=== PATIENT | female | born 1950 | race Caucasian/White ===

== ENCOUNTER 2018-06-13 02:17 | Inpatient (IN) | payer MEDICARE ==
[2018-06-13] MEDS ORDERED: ONDANSETRON 4 MG/2 ML VIAL IVP STA (02:48)
[2018-06-13] MEDS ORDERED: ceFAZolin 1,000 MG in DEXTROSE/WATER 1 50ML.BAG IVPB STA (03:07)
[2018-06-13] MEDS ORDERED: MORPHINE SULFATE 4 MG/ML SYRINGE IV STA ×2 (03:07→03:22)
[2018-06-13] MEDS ORDERED: SODIUM CHLORIDE 0.9% 1,000 ML IV ONE ×3 (03:09→07:23)
--- NOTE | 2018-06-13 03:09 | ED ---
Fall HPI - General Chief Complaint: Fall Stated Complaint: Ankle injury Time Seen by Provider: 06/13/18 02:21 Source: EMS Mode of arrival: EMS - History of Present Illness Initial Comments: This patient is 68-year-old woman brought to be evaluated for ankle injury. The patient's had been at home tonight and then had gotten up to go to the bathroom. She states that she had been having a number of bowel movements. She states that when she got she is bathroom she felt lightheaded and passed out , falling to the ground. She did not have any injury but when she got up again she did pass out. The patient on the ladder fall noted that she had an injury to her left ankle. The patient denies other injuries in the fall, including no head or neck injury, no chest, back or abdominal injury. She is denying any pain to the other extremities. 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 Fall Witnessed: yes, by family Place Fall Occurred: home Loss of Consciousness: second(s) Prolonged Down Time?: no Symptoms Prior to Fall: lightheadedness Location - Extremities: Left: Ankle Severity: severe Quality: sharp - Related Data Home Medications Medication Instructions Recorded Confirmed Atenolol 25 mg PO HS 06/13/18 06/13/18 Atorvastatin [Lipitor] 20 mg PO HS 06/13/18 06/13/18 Butalb/APAP/Caff 50-325-40Mg 1 tab PO Q4H PRN 06/13/18 06/13/18 [Fioricet 50-325-40] Celecoxib [CeleBREX] 200 mg PO BID 06/13/18 06/13/18 Cyclobenzaprine [Flexeril] 10 mg PO TID PRN 06/13/18 06/13/18 Dicyclomine [Bentyl] 10 mg PO QID 06/13/18 06/13/18 Ferrous Sulfate [Feosol] 325 mg PO Q48H 06/13/18 06/13/18 Fluticasone Nasal [place] [Flonase 1 spray EA NOSTRIL DAILY 06/13/18 06/13/18 Nasal [place]] Folic Acid 0.8 mg PO DAILY 06/13/18 06/13/18 Hydrochlorothiazide 25 mg PO DAILY 06/13/18 06/13/18 L.acidoph,Paracasei, B.lactis 1 tab PO DAILY 06/13/18 06/13/18 [Probiotic] LORazepam [Ativan] 1 mg PO TID PRN 06/13/18 06/13/18 Levothyroxine Sodium [Synthroid] 112 mcg PO SUTUWEFRSA 06/13/18 06/13/18 Levothyroxine Sodium [Synthroid] 224 mcg PO MOTH 06/13/18 06/13/18 Lisinopril [Zestril] 10 mg PO DAILY 06/13/18 06/13/18 Methotrexate Sodium [Methotrexate] 25 mg PO MO 06/13/18 06/13/18 Multivit-Min/Iron/Folic/Lutein 1 tab PO Q48H 06/13/18 06/13/18 [Centrum Silver Women Tablet] Pregabalin [Lyrica] 100 mg PO HS 06/13/18 06/13/18 Sennosides/Docusate Sodium 1 tab PO DAILY PRN 06/13/18 06/13/18 [Senna-S Laxative Tablet] Sertraline [Zoloft] 100 mg PO DAILY 06/13/18 06/13/18 buPROPion XL [Wellbutrin Xl] 150 mg PO BID 06/13/18 06/13/18 metroNIDAZOLE 1% GEL [Metrogel 1%] 1 applic TOPICAL DAILY 06/13/18 06/13/18 traZODone HCL 150 mg PO HS 06/13/18 06/13/18 Allergies Allergy/AdvReac Type Severity Reaction Status Date / Time No Known Allergies Allergy Verified 06/13/18 07:37 Review of Systems ROS Statement: Those systems with pertinent positive or pertinent negative responses have been documented in the HPI. ROS Other: All systems not noted in ROS Statement are negative. Constitutional: Denies: fever, chills Eyes: Denies: vision change ENT: Denies: epistaxis Respiratory: Denies: cough, dyspnea Cardiovascular: Reports: syncope. Denies: chest pain, palpitations, orthopnea, edema Gastrointestinal: Denies: abdominal pain, nausea, vomiting Genitourinary: Denies: dysuria, hematuria Musculoskeletal: Reports: arthralgia. Denies: back pain Skin: Denies: rash Neurological: Denies: headache, weakness, numbness Hematological/Lymphatic: Denies: easy bleeding Past Medical History Past Medical History: Hyperlipidemia, Rheumatoid Arthritis (RA) Additional Past Medical History / Comment(s): hypotension, fibramyalgia, hypothyroid, History of Any Multi-Drug Resistant Organisms: None Reported Past Surgical History: Orthopedic Surgery Additional Past Surgical History / Comment(s): right knee meniscus repair, Past Psychological History: Depression Smoking Status: Former smoker Past Alcohol Use History: Occasional Past Drug Use History: Marijuana - Past Family History Father Family Medical History: Cancer Additional Family Medical History / Comment(s): Father had bladder and bowel cancer. Mother Family Medical History: Rheumatoid Arthritis (RA) Additional Family Medical History / Comment(s): Mother from rheumatoid arthritis at the age of 61 yrs. General Exam Limitations: physical limitation General appearance: alert, in no apparent distress Head exam: Present: atraumatic, normocephalic Eye exam: Present: normal appearance, PERRL, EOMI. Absent: scleral icterus, conjunctival injection, nystagmus ENT exam: Present: mucous membranes dry Neck exam: Present: normal inspection, full ROM. Absent: tenderness Respiratory exam: Present: normal lung sounds bilaterally. Absent: respiratory distress, wheezes, rales, rhonchi, stridor Cardiovascular Exam: Present: regular rate, normal rhythm, normal heart sounds. Absent: systolic murmur, diastolic murmur, rubs, gallop GI/Abdominal exam: Present: soft. Absent: distended, tenderness, guarding, rebound, rigid, mass, pulsatile mass Extremities exam: Present: normal capillary refill. Absent: calf tenderness Left Hip exam: Present: normal inspection, full ROM. Absent: tenderness, swelling Upper Leg exam: Present: normal inspection, full ROM. Absent: tenderness, swelling Knee exam: Present: normal inspection, full ROM Back exam: Present: normal inspection. Absent: CVA tenderness (R), CVA tenderness (L), vertebral tenderness Neurological exam: Present: alert, oriented X3. Absent: motor sensory deficit Skin exam: Present: warm, dry, intact, normal color. Absent: rash Course Vital Signs 06/13/18 06/13/18 06/13/18 02:18 02:23 02:30 Temperature 98.3 F Pulse Rate 60 63 Respiratory 18 17 Rate Blood Pressure 99/58 91/58 91/58 O2 Sat by Pulse 98 97 100 Oximetry 06/13/18 06/13/1806/13/18 02:34 02:38 02:43 Temperature Pulse Rate 63 78 76 Respiratory 18 18 18 Rate Blood Pressure 110/72 112/90 130/115 O2 Sat by Pulse 100 96 99 Oximetry 06/13/18 06/13/18 06/13/18 03:00 03:30 04:00 Temperature Pulse Rate 60 64 65 Respiratory 16 15 17 Rate Blood Pressure 125/87 119/77 106/62 O2 Sat by Pulse 97 Oximetry 06/13/18 06/13/18 06/13/18 04:30 05:00 05:30 Temperature Pulse Rate 64 64 70 Respiratory 18 16 15 Rate Blood Pressure 74/56 108/72 85/58 O2 Sat by Pulse 99 97 97 Oximetry 06/13/18 06/13/18 06/13/18 06:00 06:30 07:00 Temperature Pulse Rate 74 74 64 Respiratory 16 17 18 Rate Blood Pressure 75/56 94/59 69/42 O2 Sat by Pulse 97 99 97 Oximetry 06/13/18 07:30 Temperature Pulse Rate 77 Respiratory 13 Rate Blood Pressure 84/58 O2 Sat by Pulse 96 Oximetry Medical Decision Making - Medical Decision Making This patient is 68-year-old woman presenting to the emergency department by ambulance for an ankle injury following syncopal episode. The patient has what appears to be open tib-fib fracture with displacement of the foot. Shortly after arrival, I did discuss risks and benefits, and patient agrees to have conscious sedation and closed reduction. Please see the procedure notes. Patient tolerated reduction well. I did discuss the case with Dr. Saleh who is covering trauma surgery. When the studies were back, case discussed with Dr. Gamez of orthopedic surgery who will admit. She has had irrigation and has had antibiotics and tetanus update. - Lab Data Result diagrams: 06/13/18 02:50 06/13/18 02:50 Lab Results 06/13/18 06/13/18 06/13/18 Range/Units 02:50 02:50 02:50 WBC 13.2 H (3.8-10.6) k/uL RBC 4.09 (3.80-5.40) m/uL Hgb 12.5 (11.4-16.0) gm/dL Hct 39.2 (34.0-46.0) % MCV 95.8 (80.0-100.0) fL MCH 30.5 (25.0-35.0) pg MCHC 31.8 (31.0-37.0) g/dL RDW 14.4 (11.5-15.5) % Plt Count 236 (150-450) k/uL Neutrophils % 86 % Lymphocytes % 8 % Monocytes % 4 % Eosinophils % 1 % Basophils % 0 % Neutrophils # 11.3 H (1.3-7.7) k/uL Lymphocytes # 1.1 (1.0-4.8) k/uL Monocytes # 0.5 (0-1.0) k/uL Eosinophils # 0.2 (0-0.7) k/uL Basophils # 0.0 (0-0.2) k/uL PT (9.0-12.0) sec INR (<1.2) APTT (22.0-30.0) sec Sodium 141 (137-145) mmol/L Potassium 4.4 (3.5-5.1) mmol/L Chloride 108 H (98-107) mmol/L Carbon Dioxide 26 (22-30) mmol/L Anion Gap 7 mmol/L BUN 18 H (7-17) mg/dL Creatinine 0.95 (0.52-1.04) mg/dL Est GFR (CKD-EPI)AfAm 72 (>60 ml/min/1.73 sqM) Est GFR (CKD-EPI)NonAf 62 (>60 ml/min/1.73 sqM) Glucose 120 H (74-99) mg/dL Plasma Lactic Acid Cam (0.7-2.0) mmol/L Calcium 9.1 (8.4-10.2) mg/dL Total Bilirubin 0.4 (0.2-1.3) mg/dL AST 22 (14-36) U/L ALT 27 (9-52) U/L Alkaline Phosphatase 46 (38-126) U/L Total Creatine Kinase 37 (30-135) U/L CK-MB (CK-2) 0.2 (0.0-2.4) ng/mL CK-MB (CK-2) Rel Index 0.5 Troponin I <0.012 (0.000-0.034) ng/mL Total Protein 6.4 (6.3-8.2) g/dL Albumin 3.9 (3.5-5.0) g/dL Amylase 40 (30-110) U/L Lipase 123 (23-300) U/L Serum Alcohol <10 mg/dL Blood Type Blood Type Confirm Blood Type Recheck Antibody Screen Antibody Identification Antigen Identification Direct Antiglob Test Spec Expiration Date 06/13/18 06/13/18 06/13/18 Range/Units 02:50 02:50 02:50 WBC (3.8-10.6) k/uL RBC (3.80-5.40) m/uL Hgb (11.4-16.0) gm/dL Hct (34.0-46.0) % MCV (80.0-100.0) fL MCH (25.0-35.0) pg MCHC (31.0-37.0) g/dL RDW (11.5-15.5) % Plt Count (150-450) k/uL Neutrophils % % Lymphocytes % % Monocytes % % Eosinophils % % Basophils % % Neutrophils # (1.3-7.7) k/uL Lymphocytes # (1.0-4.8) k/uL Monocytes # (0-1.0) k/uL Eosinophils # (0-0.7) k/uL Basophils # (0-0.2) k/uL PT 10.3 (9.0-12.0) sec INR 1.1 (<1.2) APTT 21.3 L (22.0-30.0) sec Sodium (137-145) mmol/L Potassium (3.5-5.1) mmol/L Chloride (98-107) mmol/L Carbon Dioxide (22-30) mmol/L Anion Gap mmol/L BUN (7-17) mg/dL Creatinine (0.52-1.04) mg/dL Est GFR (CKD-EPI)AfAm (>60 ml/min/1.73 sqM) Est GFR (CKD-EPI)NonAf (>60 ml/min/1.73 sqM) Glucose (74-99) mg/dL Plasma Lactic Acid Cam 1.5 (0.7-2.0) mmol/L Calcium (8.4-10.2) mg/dL Total Bilirubin (0.2-1.3) mg/dL AST (14-36) U/L ALT (9-52) U/L Alkaline Phosphatase (38-126) U/L Total Creatine Kinase (30-135) U/L CK-MB (CK-2) (0.0-2.4) ng/mL CK-MB (CK-2) Rel Index Troponin I (0.000-0.034) ng/mL Total Protein (6.3-8.2) g/dL Albumin (3.5-5.0) g/dL Amylase (30-110) U/L Lipase (23-300) U/L Serum Alcohol mg/dL Blood Type A Negative Blood Type Confirm Blood Type Recheck CABO Indicated Antibody Screen POSITIVE Antibody Identification Anti-Fya Antigen Identification Fya Antigen - NEGATIVE Direct Antiglob Test Negative Spec Expiration Date 06/16/2018 - 234906/13/18 Range/Units 04:34 WBC (3.8-10.6) k/uL RBC (3.80-5.40) m/uL Hgb (11.4-16.0) gm/dL Hct (34.0-46.0) % MCV (80.0-100.0) fL MCH (25.0-35.0) pg MCHC (31.0-37.0) g/dL RDW (11.5-15.5) % Plt Count (150-450) k/uL Neutrophils % % Lymphocytes % % Monocytes % % Eosinophils % % Basophils % % Neutrophils # (1.3-7.7) k/uL Lymphocytes # (1.0-4.8) k/uL Monocytes # (0-1.0) k/uL Eosinophils # (0-0.7) k/uL Basophils # (0-0.2) k/uL PT (9.0-12.0) sec INR (<1.2) APTT (22.0-30.0) sec Sodium (137-145) mmol/L Potassium (3.5-5.1) mmol/L Chloride (98-107) mmol/L Carbon Dioxide (22-30) mmol/L Anion Gap mmol/L BUN (7-17) mg/dL Creatinine (0.52-1.04) mg/dL Est GFR (CKD-EPI)AfAm (>60 ml/min/1.73 sqM) Est GFR (CKD-EPI)NonAf (>60 ml/min/1.73 sqM) Glucose (74-99) mg/dL Plasma Lactic Acid Cam (0.7-2.0) mmol/L Calcium (8.4-10.2) mg/dL Total Bilirubin (0.2-1.3) mg/dL AST (14-36) U/L ALT (9-52) U/L Alkaline Phosphatase (38-126) U/L Total Creatine Kinase (30-135) U/L CK-MB (CK-2) (0.0-2.4) ng/mL CK-MB (CK-2) Rel Index Troponin I (0.000-0.034) ng/mL Total Protein (6.3-8.2) g/dL Albumin (3.5-5.0) g/dL Amylase (30-110) U/L Lipase (23-300) U/L Serum Alcohol mg/dL Blood Type Blood Type Confirm A Negative Blood Type Recheck Antibody Screen Antibody Identification Antigen Identification Direct Antiglob Test Spec Expiration Date - EKG Data -: EKG Interpreted by Me EKG shows normal: sinus rhythm, axis (Normal), intervals (Normal), QRS complexes (Normal), ST-T waves (Normal) Rate: normal (Rate 62 bpm) Interpretation: normal EKG Critical Care Time Critical Care Time: Yes (30 minutes) Disposition Clinical Impression: Fall, Open left ankle fracture Disposition: ADMITTED IP TO THIS [facility] Condition: Serious
[2018-06-13 03:12] LABS: Basophils % (A) 0 %; Eosinophils # (A) 0.2 k/uL (0-0.7); Eosinophils % (A) 1 %; HCT 39.2 % (34.0-46.0); HGB 12.5 gm/dL (11.4-16.0); Lymphocytes # (A) 1.1 k/uL (1.0-4.8); Lymphocytes % (A) 8 %; MCH 30.5 pg (25.0-35.0); MCHC 31.8 g/dL (31.0-37.0); MCV 95.8 fL (80.0-100.0); Mean Platelet Volume 8.5; Monocytes # (A) 0.5 k/uL (0-1.0); Monocytes % (A) 4 %; Neutrophils # (A) 11.3 k/uL (1.3-7.7); Neutrophils % (A) 86 %; Platelet Count 236 k/uL (150-450); RBC 4.09 m/uL (3.80-5.40); RDW 14.4 % (11.5-15.5); WBC 13.2 k/uL (3.8-10.6)
--- NOTE | 2018-06-13 03:13 | XR ---
EXAMINATION TYPE: XR ankle limited RT DATE OF EXAM: 06/13/2018 COMPARISON: NONE HISTORY: Postreduction. Fall. TECHNIQUE: 2 views FINDINGS: There is oblique fracture of the distal fibula. There is transverse fracture of the medial malleolus. There is almost 1 cm lateral subluxation of the talus. There is widening of the ankle mort ise. There is soft tissue swelling around the ankle joint. There is probably a small chip fracture of the posterior malleolus. IMPRESSION: There is trimalleolar fracture of the ankle joint. Lateral subluxation of the talus.
--- NOTE | 2018-06-13 03:15 | XR ---
EXAMINATION TYPE: XR chest 1V portable DATE OF EXAM: 06/13/2018 COMPARISON: NONE HISTORY: Ankle fracture. TECHNIQUE: Single frontal view of the chest is obtained. FINDINGS: Heart appears slightly enlarged. There is mild pulmonary congestion. There are chest leads . There is no definite pleural effusion. IMPRESSION: Mild congestive heart failure. No pulmonary consolidation.
[2018-06-13 03:18] LABS: ALT 27 U/L (9-52); AST 22 U/L (14-36); Albumin 3.9 g/dL (3.5-5.0); Alcohol <10 mg/dL; Alkaline Phosphatase 46 U/L (38-126); Amylase 40 U/L (30-110); Anion Gap 7 mmol/L; Blood Urea Nitrogen 18 mg/dL (7-17); Calcium 9.1 mg/dL (8.4-10.2); Carbon Dioxide 26 mmol/L (22-30); Chloride 108 mmol/L (98-107); Glucose 120 mg/dL (74-99); Lipase 123 U/L (23-300); Potassium 4.4 mmol/L (3.5-5.1); Sodium 141 mmol/L (137-145); Total Bilirubin 0.4 mg/dL (0.2-1.3); Total Protein 6.4 g/dL (6.3-8.2)
[2018-06-13 03:22] LABS: INR 1.1 (<1.2); Prothrombin Time 10.3 sec (9.0-12.0)
[2018-06-13] MEDS ORDERED: ETOMIDATE 2 MG/ML 10 ML VIAL IVP STA (03:22)
[2018-06-13 03:25] LABS: Creatine Kinase 37 U/L (30-135)
[2018-06-13 03:29] LABS: Partial Thromboplastin Time 21.3 sec (22.0-30.0)
[2018-06-13 03:38] LABS: Creatine Kinase MB 0.2 ng/mL (0.0-2.4); Troponin I <0.012 ng/mL (0.000-0.034)
[2018-06-13] MEDS ORDERED: MORPHINE SULFATE 4 MG/ML SYRINGE IV PRN (05:11)
[2018-06-13] MEDS ORDERED: NALOXONE 0.4 MG/ML 1 ML VIAL IV PRN (05:11)
[2018-06-13] MEDS ORDERED: DIPH,PERTUS(ACELL)TETVAC-LF 0.5 ML VIAL IM ONE (05:14)
[2018-06-13] MEDS ORDERED: SODIUM CHLORIDE 0.9% 1,000 ML IV SCH (05:15)
[2018-06-13] MEDS ORDERED: SODIUM CHLORIDE 0.9% 500 ML 500 ML IV STA (05:31)
[2018-06-13] MEDS ORDERED: INFLUENZA VACCINE (6 MOS+) 60 MCG/0.5 ML SYRINGE IM ONE (08:54)
[2018-06-13 10:57] VITALS: RESP 16; BMI 25.0
[2018-06-13] MEDS ORDERED: ceFAZolin 1,000 MG in DEXTROSE/WATER 1 50ML.BAG IVPB SCH (12:00)
[2018-06-13] MEDS ORDERED: SENNOSIDES-DOCUSATE SODIUM 1 EACH TAB PO PRN (12:24)
[2018-06-13] MEDS ORDERED: HYDROcodone/APAP 5-325MG 1 EACH TAB PO PRN ×2 (12:24)
[2018-06-13] MEDS ORDERED: HYDROmorphone 1 MG/ML 1 ML SYRINGE IVP PRN ×3 (12:24)
[2018-06-13] MEDS ORDERED: diphenhydrAMINE 25 MG CAP PO PRN (12:24)
[2018-06-13] MEDS ORDERED: hydrOXYzine PAMOATE 25 MG CAP PO PRN (12:24)
[2018-06-13] MEDS ORDERED: ONDANSETRON 4 MG/2 ML VIAL IVP PRN (12:24)
--- NOTE | 2018-06-13 12:40 | P.HPOR ---
History of Present Illness H&P Date: 06/13/18 Chief Complaint: Right ankle fracture Patient was admitted through the emergency department early this morning after a fall at home. She states she got up from sitting, fainted and twisted her right ankle. X-rays in the emergency department revealed a trimalleolar fracture with lateral subluxation. Ankle was reduced and placed in a sugar tong splint. She was admitted to Dr. Gamez for further violation recommendations. She has pain at the right ankle as expected when seen at bedside this afternoon. Pain is controlled with pain medication. She denies numbness, tingling, calf pain, fever, chills, chest pain or shortness of breath. She has no other complaints. She takes methotrexate for rheumatoid arthritis and is a smoker. Review of Systems All systems: negative Constitutional: Denies chills, Denies fever Eyes: denies blurred vision, denies pain Ears, nose, mouth and throat: Denies headache, Denies sore throat Cardiovascular: Denies chest pain, Denies shortness of breath Respiratory: Denies cough Gastrointestinal: Denies abdominal pain, Denies diarrhea, Denies nausea, Denies vomiting Genitourinary: Denies dysuria, Denies hematuria Musculoskeletal: Denies myalgias Integumentary: Denies pruritus, Denies rash Neurological: Denies numbness, Denies weakness Psychiatric: Denies anxiety, Denies depression Endocrine: Denies fatigue, Denies weight change Past Medical History Past Medical History: Hyperlipidemia, Rheumatoid Arthritis (RA) Additional Past Medical History / Comment(s): hypotension, fibramyalgia, hypothyroid, History of Any Multi-Drug Resistant Organisms: None Reported Past Surgical History: Orthopedic Surgery Additional Past Surgical History / Comment(s): right knee meniscus repair, Past Anesthesia/Blood Transfusion Reactions: No Reported Reaction Additional Past Anesthesia/Blood Transfusion Reaction / Comment(s): Pt received blood at age 2 yrs. Smoking Status: Current every day smoker - Past Family History Father Family Medical History: Cancer Additional Family Medical History / Comment(s): Father had bladder and bowel cancer. Mother Family Medical History: Rheumatoid Arthritis (RA) Additional Family Medical History / Comment(s): Mother from rheumatoid arthritis at the age of 61 yrs. Medications and Allergies Home Medications Medication Instructions Recorded Confirmed Type Aspirin 325 mg PO BID #60 tab 06/13/18 Rx Atenolol 25 mg PO HS 06/13/18 06/13/18 History Atorvastatin [Lipitor] 20 mg PO HS 06/13/18 06/13/18 History Butalb/APAP/Caff 50-325-40Mg 1 tab PO Q4H PRN 06/13/18 06/13/18 History [Fioricet 50-325-40] Celecoxib [CeleBREX] 200 mg PO BID 06/13/18 06/13/18 History Cyclobenzaprine [Flexeril] 10 mg PO TID PRN 06/13/18 06/13/18 History Dicyclomine [Bentyl] 10 mg PO QID 06/13/18 06/13/18 History Docusate [Colace] 100 mg PO BID #60 capsule 06/13/18 Rx Ferrous Sulfate [Feosol] 325 mg PO Q48H 06/13/18 06/13/18 History Fluticasone Nasal [place] [Flonase 1 spray EA NOSTRIL DAILY 06/13/18 06/13/18 History Nasal [place]] Folic Acid 0.8 mg PO DAILY 06/13/18 06/13/18 History HYDROcodone/APAP 7.5-325MG [[place] 1 - 2 each PO Q6HR PRN #56 tab 06/13/18 Rx 7.5-325] Hydrochlorothiazide 25 mg PO DAILY 06/13/18 06/13/18 History L.acidoph,Paracasei, B.lactis 1 tab PO DAILY 06/13/18 06/13/18 History [Probiotic] LORazepam [Ativan] 1 mg PO TID PRN 06/13/18 06/13/18 History Levothyroxine Sodium [Synthroid] 112 mcg PO SUTUWEFRSA 06/13/18 06/13/18 History Levothyroxine Sodium [Synthroid] 224 mcg PO MOTH 06/13/18 06/13/18 History Lisinopril [Zestril] 10 mg PO DAILY 06/13/18 06/13/18 History Methotrexate Sodium [Methotrexate] 25 mg PO MO 06/13/18 06/13/18 History Multivit-Min/Iron/Folic/Lutein 1 tab PO Q48H 06/13/18 06/13/18 History [Centrum Silver Women Tablet] Pregabalin [Lyrica] 100 mg PO HS 06/13/18 06/13/18 History Sennosides/Docusate Sodium 1 tab PO DAILY PRN 06/13/18 06/13/18 History [Senna-S Laxative Tablet] Sertraline [Zoloft] 100 mg PO DAILY 06/13/18 06/13/18 History buPROPion XL [Wellbutrin Xl] 150 mg PO BID 06/13/18 06/13/18 History metroNIDAZOLE 1% GEL [Metrogel 1%] 1 applic TOPICAL DAILY 06/13/18 06/13/18 History traZODone HCL 150 mg PO HS 06/13/18 06/13/18 History Allergies Allergy/AdvReac Type Severity Reaction Status Date / Time No Known Allergies Allergy Verified 06/13/18 07:37 Physical Examination Inspection of the right lower extremity and ankle show no open wounds or lacerations. There is mild to moderate edema at the right ankle as expected. There is no erythema or signs of infection. Calf is soft and nontender. Neurovascular status is intact throughout the right lower extremity with motor and sensation. She is able to wiggle all toes and has sensation to light touch in all toes. There is less than 2 second capillary refill. There is a 2+ dorsalis pedis pulse present. Results X-rays of the right ankle show a mild displaced trimalleolar fracture. There is mild subluxation and displacement of the ankle mortise. - Labs Labs: Abnormal Lab Results - Last 24 Hours (Table) 06/13/18 06/13/18 06/13/18 Range/Units 02:50 02:50 02:50 WBC 13.2 H (3.8-10.6) k/uL Neutrophils # 11.3 H (1.3-7.7) k/uL APTT 21.3 L (22.0-30.0) sec Chloride 108 H (98-107) mmol/L BUN 18 H (7-17) mg/dL Glucose 120 H (74-99) mg/dL H & H 06/13/18 Range/Units 02:50 Hgb 12.5 (11.4-16.0) gm/dL Hct 39.2 (34.0-46.0) % Coagulation 06/13/18 Range/Units 02:50 INR 1.1 (<1.2) Result Diagrams: 06/13/18 02:50 06/13/18 02:50 - Diagnostic results Ankle/Foot x-ray: report reviewed, image reviewed Assessment and Plan (1) Fall Narrative/Plan: Patient has been reviewed with Dr. Gamez. I Do not see any signs of open fracture. There is some bruising/hematoma at the right ankle but no open wounds. She'll be placed in a bulky padded splint. She'll follow up in office in 1 week to make arrangements for surgical intervention including ORIF of the right ankle fracture. She is to be nonweightbearing. I also advised her to elevate the right lower extremity. She will be given medication for pain control to be taken as directed with precautions given. She also may call our office in the interim for any questions or concerns. Current Visit: Yes Status: Acute Code(s): W19.XXXA - UNSPECIFIED FALL, INITIAL ENCOUNTER SNOMED Code(s): 3886333 Time with Patient: Less than 30
--- NOTE | 2018-06-13 13:15 | P.DS ---
Providers Date of admission: 06/13/18 05:11 Expected date of discharge: 06/13/18 Attending physician: Shawn Gamez Primary care physician: Ethan Hickmans - Discharge Diagnosis(es) (1) Fall Current Visit: Yes Status: Acute (2) Ankle fracture, right Current Visit: Yes Status: Acute Priority: Medium Hospital Course: Patient was admitted through the emergency department early this morning after a fall at home. She states she got up from sitting, fainted and twisted her right ankle. X-rays in the emergency department revealed a trimalleolar fracture with lateral subluxation. Ankle was reduced and placed in a sugar tong splint. She was admitted to Dr. Gamez for further recommendations. She has pain at the right ankle as expected when seen at bedside this afternoon. Pain is controlled with pain medication. I placed her in a well padded bulky posterior and stirrup splint. Hospital stay was without complication. She denies numbness, tingling, calf pain, fever, chills, chest pain or shortness of breath. She has no other complaints. Patient Condition at Discharge: Stable Plan - Discharge Summary Discharge Rx Participant: No New Discharge Prescriptions: New Aspirin 325 mg PO BID #60 tab Docusate [Colace] 100 mg PO BID #60 capsule HYDROcodone/APAP 7.5-325MG [[place] 7.5-325] 1 - 2 each PO Q6HR PRN #56 tab PRN Reason: Pain No Action Methotrexate Sodium [Methotrexate] 25 mg PO MO Cyclobenzaprine [Flexeril] 10 mg PO TID PRN PRN Reason: Muscle Spasm Atenolol 25 mg PO HS metroNIDAZOLE 1% GEL [Metrogel 1%] 1 applic TOPICAL DAILY Fluticasone Nasal [place] [Flonase Nasal [place]] 1 spray EA NOSTRIL DAILY Sennosides/Docusate Sodium [Senna-S Laxative Tablet] 1 tab PO DAILY PRN PRN Reason: Constipation Multivit-Min/Iron/Folic/Lutein [Centrum Silver Women Tablet] 1 tab PO Q48H Folic Acid 0.8 mg PO DAILY LORazepam [Ativan] 1 mg PO TID PRN PRN Reason: Anxiety Ferrous Sulfate [Feosol] 325 mg PO Q48H L.acidoph,Paracasei, B.lactis [Probiotic] 1 tab PO DAILY Butalb/APAP/Caff 50-325-40Mg [Fioricet 50-325-40] 1 tab PO Q4H PRN PRN Reason: Headache Lisinopril [Zestril] 10 mg PO DAILY Hydrochlorothiazide 25 mg PO DAILY Dicyclomine [Bentyl] 10 mg PO QID Celecoxib [CeleBREX] 200 mg PO BID Levothyroxine Sodium [Synthroid] 224 mcg PO MOTH Levothyroxine Sodium [Synthroid] 112 mcg PO SUTUWEFRSA Sertraline [Zoloft] 100 mg PO DAILY Pregabalin [Lyrica] 100 mg PO HS Atorvastatin [Lipitor] 20 mg PO HS traZODone HCL 150 mg PO HS buPROPion XL [Wellbutrin Xl] 150 mg PO BID Discharge Medication List Aspirin 325 mg PO BID #60 tab 06/13/18 [Rx] Atenolol 25 mg PO HS 06/13/18 [History] Atorvastatin [Lipitor] 20 mg PO HS 06/13/18 [History] Butalb/APAP/Caff 50-325-40Mg [Fioricet 50-325-40] 1 tab PO Q4H PRN 06/13/18 [ History] Celecoxib [CeleBREX] 200 mg PO BID 06/13/18 [History] Cyclobenzaprine [Flexeril] 10 mg PO TID PRN 06/13/18 [History] Dicyclomine [Bentyl] 10 mg PO QID 06/13/18 [History] Docusate [Colace] 100 mg PO BID #60 capsule 06/13/18 [Rx] Ferrous Sulfate [Feosol] 325 mg PO Q48H 06/13/18 [History] Fluticasone Nasal [place] [Flonase Nasal [place]] 1 spray EA NOSTRIL DAILY 06/13/18 [History] Folic Acid 0.8 mg PO DAILY 06/13/18 [History] HYDROcodone/APAP 7.5-325MG [[place] 7.5-325] 1 - 2 each PO Q6HR PRN #56 tab [Rx] Hydrochlorothiazide 25 mg PO DAILY 06/13/18 [History] L.acidoph,Paracasei, B.lactis [Probiotic] 1 tab PO DAILY 06/13/18 [History] LORazepam [Ativan] 1 mg PO TID PRN 06/13/18 [History] Levothyroxine Sodium [Synthroid] 112 mcg PO SUTUWEFRSA 06/13/18 [History] Levothyroxine Sodium [Synthroid] 224 mcg PO MOTH 06/13/18 [History] Lisinopril [Zestril] 10 mg PO DAILY 06/13/18 [History] Methotrexate Sodium [Methotrexate] 25 mg PO MO 06/13/18 [History] Multivit-Min/Iron/Folic/Lutein [Centrum Silver Women Tablet] 1 tab PO Q48H 06/13 [History] Pregabalin [Lyrica] 100 mg PO HS 06/13/18 [History] Sennosides/Docusate Sodium [Senna-S Laxative Tablet] 1 tab PO DAILY PRN [History] Sertraline [Zoloft] 100 mg PO DAILY 06/13/18 [History] buPROPion XL [Wellbutrin Xl] 150 mg PO BID 06/13/18 [History] metroNIDAZOLE 1% GEL [Metrogel 1%] 1 applic TOPICAL DAILY 06/13/18 [History] traZODone HCL 150 mg PO HS 06/13/18 [History] Follow up Appointment(s)/Referral(s): Ethan Prince MD [Primary Care Provider] - 1-2 days Shawn Gamez MD [STAFF PHYSICIAN] - 1 Week Activity/Diet/Wound Care/Special Instructions: maintain splint non weight bearing elevate leg take meds as directed f/u Dr. Gamez in office Discharge Disposition: HOME SELF-CARE
[2018-06-13 15:31] LABS: Appearance,Urine Clear (Clear); Bacteria,Urine Rare /hpf; Bilirubin,Urine Negative (Negative); Blood,Urine Negative (Negative); Color,Urine Yellow; Glucose,Urine (UA) Negative (Negative); Ketones,Urine Negative (Negative); Leukocyte Esterase,Urine Large (Negative); Mucus,Urine Rare /hpf; Nitrite,Urine Negative (Negative); PH, Urine 5.5 (5.0-8.0); Protein,Urine Negative (Negative); RBC,Urine 5 /hpf (0-5); Specific Gravity,Urine 1.018 (1.001-1.035); Squamous Epithelial Cell,Urine 1 /hpf (0-4); Urobilinogen,Urine <2.0 mg/dL (<2.0); WBC,Urine 19 /hpf (0-5)
[2018-06-13 16:02] VITALS: BP 118/63; PULSE 77; TEMP 97.9
== END 2018-06-13 17:16 | disposition home or self-care (01) | DRG 563 ==
LOC: EC 02:17 → SUPCPDRO 02:17 → 4SSUR 05:11
PROVIDERS: ADMIT Orthopaedic Surgery Sports Medicine; ATTEND Orthopaedic Surgery Sports Medicine
PROC: 0QSGXZZ Reposition Right Tibia, External Approach (ICD-10-PCS; principal; 2018-06-13)
PROC: 0QSJXZZ Reposition Right Fibula, External Approach (ICD-10-PCS; principal; 2018-06-13)
DX: S82.851A Displaced trimalleolar fracture of right lower leg, initial encounter for closed fracture (principal); E03.9 Hypothyroidism, unspecified; M06.9 Rheumatoid arthritis, unspecified; M79.7 Fibromyalgia; E78.5 Hyperlipidemia, unspecified; R42 Dizziness and giddiness; F32.9 Major depressive disorder, single episode, unspecified; F17.200 Nicotine dependence, unspecified, uncomplicated; W18.30XA Fall on same level, unspecified, initial encounter; Y92.009 Unspecified place in unspecified non-institutional (private) residence as the place of occurrence of the external cause; Z79.82 Long term (current) use of aspirin; Z79.899 Other long term (current) drug therapy; Z79.890 Hormone replacement therapy; Z82.61 Family history of arthritis; Z80.52 Family history of malignant neoplasm of bladder; Z80.0 Family history of malignant neoplasm of digestive organs
CPT/HCPCS: 27818; 36415; 71045; 80053; 80320; 81001; 82150; 82550; 82553; 83605; 83690; 84484; 85025; 85610; 85730; 86850; 86870; 86880; 86900; 86901; 86902; 87040; 90471; 90715; 96361; 96365; 96375; 99152; 99291

== ENCOUNTER 2018-06-22 14:52 | Day surgery (SDC) | payer MEDICARE ==
[2018-06-21 10:35] VITALS: BMI 25.8
[~2018-06-22 14:52] MED LIST: DEXAMETHASONE SOD PHOSPHATE 10 MG/ML 1 ML VIAL IV ONE; MORPHINE SULFATE 2 MG/ML SYRINGE IV PRN; ONDANSETRON 4 MG/2 ML VIAL IVP ONE; ceFAZolin IN SWFI 2 GM/20 ML SYRINGE IVP ONE
[2018-06-22] MEDS ORDERED: LACTATED RINGERS 1,000 ML IV ONE (15:23)
[2018-06-22] MEDS ORDERED: ONDANSETRON ODT 4 MG TAB PO ONE (15:23)
[2018-06-22] MEDS ORDERED: LIDOCAINE 1% 20 ML VIAL (10MG/ML) FOR IV START INTRADERMA ONE (15:23)
[2018-06-22] MEDS ORDERED: MIDAZOLAM 2 MG/2 ML VIAL IVP ONE (15:45)
[2018-06-22] MEDS ORDERED: TEMAZEPAM 15 MG CAP PO PRN (16:28)
[2018-06-22] MEDS ORDERED: ONDANSETRON 4 MG/2 ML VIAL IVP PRN (16:28)
[2018-06-22] MEDS ORDERED: HYDROmorphone 1 MG/ML 1 ML SYRINGE IVP PRN ×2 (16:28)
[2018-06-22] MEDS ORDERED: METOCLOPRAMIDE 5 MG/ML 2 ML VIAL IVP PRN (16:28)
[2018-06-22] MEDS ORDERED: SENNOSIDES-DOCUSATE SODIUM 1 EACH TAB PO PRN (16:28)
[2018-06-22] MEDS ORDERED: PROCHLORPERAZINE SUPPOSITORY 25 MG SUPP RECTAL PRN (16:28)
[2018-06-22] MEDS ORDERED: diphenhydrAMINE 25 MG CAP PO PRN (16:28)
[2018-06-22] MEDS ORDERED: HYDROcodone/APAP 5-325MG 1 EACH TAB PO PRN (16:28)
[2018-06-22] MEDS ORDERED: HYDROcodone/APAP 7.5-325MG 1 EACH TAB PO PRN ×2 (16:36)
[2018-06-22] MEDS ORDERED: HYDROcodone/APAP 10-325MG 1 EACH TAB PO PRN ×2 (16:36)
[2018-06-22] MEDS ORDERED: PROPOFOL 10 MG/ML 20 ML VIAL IV ONE (18:45)
[2018-06-22] MEDS ORDERED: PHENYLEPHRINE-0.9% NACL SYG 1 MG/10 ML SYRINGE ONE (18:45)
[2018-06-22] MEDS ORDERED: SUCCINYLCHOLINE CHLORIDE 100 MG/5 ML SYR IV ONE (18:45)
[2018-06-22] MEDS ORDERED: HYDROmorphone (PF) 1 MG/ML ONE (18:45)
[2018-06-22] MEDS ORDERED: ROPIVACAINE 5 MG/ML 30 ML VIAL ONE (18:45)
[2018-06-22] MEDS ORDERED: MIDAZOLAM 2 MG/2 ML VIAL ONE (18:45)
[2018-06-22] MEDS ORDERED: fentaNYL (PF) 50 MCG/ML 2 ML AMP ONE (18:45)
[2018-06-22] MEDS ORDERED: LIDOCAINE 1% INJ 10MG/ML (20 ML MDV) ONE (18:45)
[2018-06-22] MEDS ORDERED: ceFAZolin 1,000 MG in SODIUM CHLORIDE 0.9% 1,000 ML IRRIGATION ONE (19:17)
[2018-06-22] MEDS: HYDROmorphone 0.5 MG/0.5 ML SYRINGE IVP PRN ×2 (20:58→21:13)
--- NOTE | 2018-06-22 22:29 | OP ---
OPERATIVE REPORT DATE OF PROCEDURE: 06/22/2018. PREOPERATIVE DIAGNOSIS: Right bimalleolar ankle fracture. POSTOPERATIVE DIAGNOSIS: Right bimalleolar ankle fracture. PROCEDURE PERFORMED: Open reduction, internal fixation, right closed bimalleolar ankle fracture. SURGEON: Shawn Gamez MD. PRACTICING DERMATOLOGIST: Murtaza WANG. ANESTHESIA: General endotracheal. ESTIMATED BLOOD LOSS: 25 mL TOURNIQUET: 48 minutes at 250 mmHg. DRAINS: None. COMPLICATIONS: None apparent. DISPOSITION: Postanesthesia care unit. INDICATIONS: Noni is a very pleasant 68-year-old female. Approximately a little over week ago she slipped and fell injuring her right ankle. She was brought to [facility]. Workup including x-rays revealed a displaced right closed bimalleolar ankle fracture. This was reduced by the emergency room physician. She then followed up in my office. The swelling was much decreased, approximately 2-3 days ago. She had good skin wrinkling. We felt it was appropriate to proceed with open reduction, internal fixation of her bimalleolar ankle fracture. The risks of the procedure were discussed with her in detail. These risks include, but are not limited to risk of infection, nerve damage, bleeding, pain, and a small risk of deep vein thrombosis which could lead to fatal pulmonary embolism. She is also at increased risk for wound healing problems secondary to her utilizing methotrexate. All of Noni and her 's questions were answered to her satisfaction. Appropriate informed consent was obtained. DESCRIPTION OF PROCEDURE: The patient was identified in the preoperative holding area. The splint was taken down. The surgical site was marked by both the patient and myself. She had good skin wrinkling and skin was appropriate for to proceed with surgery. She was then brought to the operative suite. She was placed supine on the operative table. General anesthetic was administered and dosed per the anesthesia without apparent complication. A small bump was then placed under the right upper thigh well- padded in preparation for surgery. A tourniquet was also placed on the right upper thigh well-padded in preparation for surgery. The patient's right lower extremity then prepped and draped in usual sterile fashion. Standard surgical pause undertaken to ensure that we were operating the correct site and that appropriate preoperative antibiotics were given. All staff in the room in agreement we proceeded. The leg was exsanguinated with an Esmarch dressing. The tourniquet was inflated to 250 mmHg. The distal fibula was outlined with a surgical pen. A planned approximate 10 cm incision extending from the distal tip of the fibula proximally in line with the shaft of the fibula was then marked with a surgical pen. The incision was made over the posterior 1/3 of the fibula. Incision was then made with a 15 blade scalpel. Dissection carried down sharply to the lateral cortex of the fibula. Fracture was readily identified. It was a comminuted oblique fracture. She had very poor bone quality. The bone was very soft. Reduction was carefully obtained with traction and with bone reduction forceps. I then chose a Synthes 8 hole 1/3 tubular plate. This was placed on the lateral cortex of the fibula. Fluoroscopy was utilized to ensure the plate was appropriately placed and of appropriate length. I then proceeded with fixation. I first placed an oblique screw from the distal fracture fragment into the proximal fracture fragment perpendicular to the fracture site. This was a 4-0 cancellous screw. This provided good interfragmentary compression screw and good provisional fixation. I then proceeded to place 3 bicortical 3.5 mm nonlocking screws proximal to the fracture and and two 4.0 mm cancellous screws placed bicortically distal to the fracture. Fluoroscopy was utilized to ensure these were appropriate length and well placed and they were. I then proceeded with reduction and fixation of the medial malleolus fracture. An approximate 2-3 cm curvilinear incision over the anterior third of the medial malleolus was marked with surgical pen. This was then made with a 15 blade scalpel. The saphenous vein and nerve were identified and retracted and protected throughout the fixation of the medial malleolus. A reduction was then achieved with a pointed forcep. The reduction was confirmed with fluoroscopic imaging. I did inspect the medial talar dome through the fracture of the medial malleolus. She did have a chondral defect in the medial talar dome. This was approximately 1 cm by 1 cm. The chondral fragment was removed. Again the joint was thoroughly irrigated with sterile saline solution with antibiotic added. Again. I reduced the medial malleolus with a pointed forceps. Again, the reduction was confirmed with fluoroscopic imaging. I then proceeded with fixation. I utilized two 4.0 mm partially threaded cannulated screws for fixation. These were placed in parallel. Placement of the screws was confirmed with fluoroscopic imaging. This provided good fixation and compression of the medial malleolus fracture. I then proceeded with the final imaging. On the lateral view the 4.0 cannulated screws were within bone and well placed. The plate was on the AP view. The lateral plate was of appropriate length. All the screws were through the plate and the fracture was reduced well. The ankle mortise was reduced anatomically. I then stretched evaluated the syndesmosis. The Cotton test was negative. I also provided external rotation stress to the ankle and there was no widening of the medial clear space. At this point time, no further work was deemed necessary. Both wounds were thoroughly irrigated with sterile saline solution with antibiotic added. The deep tissue was closed with 0 Vicryl interrupted suture. This provided nice provisional closure of the plate. The subcutaneous tissue closed with 2-0 Vicryl suture and the skin was closed with stainless steel hossein. The lateral incision, skin was closed with stainless steel hossein. The tourniquet was deflated prior to closure. The total tourniquet time for the procedure was 48 minutes at 250 mmHg. Sterile compressive dressing was then applied. The patient was placed into a well- padded posterior mold splint with side stirrups. All sponge and needle counts were deemed correct prior to closure. The patient tolerated the procedure without apparent complication. She was transferred recovery room in stable condition. FADY / KEILA: [id number] /
[2018-06-22] MEDS: HYDROcodone/APAP 5-325MG 1 EACH TAB PO PRN (22:39)
[2018-06-22] MEDS: ASPIRIN 325 MG TAB PO SCH (22:39)
[2018-06-23] MEDS: LACTATED RINGERS 1,000 ML IV SCH ×5 (00:17→15:28)
--- NOTE | 2018-06-23 00:28 | P.CONS ---
History of Present Illness - Reason for Consult Consult date: 06/22/18 medical management Requesting physician: Shawn Gamez - Chief Complaint Consult for medical management - History of Present Illness The patient is a 68-year-old female with a past medical history of essential hypertension , hyperlipidemia , hypothyroidism , rheumatoid arthritis who is admitted under orthopedic primary service under Dr. Shawn Gamez and is currently postop day #0 after having open reduction internal fixation of the right closed bimalleolar ankle fracture that she sustained after a fall at home on . She states she got up from sitting, fainted and twisted her right ankle. Apparently the patient was admitted at that time and seen by Dr. Gamez and it scheduled for follow-up in surgery earlier today. the patient denies any chest pain or shortness of breath, she has had some episodes of hypotension since surgery but is asymptomatic and she denies any lightheadedness, or confusion or headaches. She currently reports her pain at a 8/10 and is not able to wiggle her toes since having her nerve block. Review of Systems Pertinent positives per HPI all other review of systems otherwise negative Past Medical History Past Medical History: Fibromyalgia, GERD/Reflux, Hyperlipidemia, Hypertension, Rheumatoid Arthritis (RA) Additional Past Medical History / Comment(s): HYPOTHYROID, LOW BACK PAIN, IBS-D. , HX OF FALL 06/12/18 WITH RIGHT ANKLE FX. , SPLINT RIGHT ANKLE WITH NWB- USING CRUTCHES. History of Any Multi-Drug Resistant Organisms: None Reported Past Surgical History: Adenoidectomy, Orthopedic Surgery, Tonsillectomy Additional Past Surgical History / Comment(s): right knee meniscus repair, skin graft on foot (1956- shakira ), stomach surgery at age 2 for removal of a quarter. Past Anesthesia/Blood Transfusion Reactions: No Reported Reaction Additional Past Anesthesia/Blood Transfusion Reaction / Comm: Pt received blood at age 2 yrs. Past Psychological History: Anxiety, Depression Additional Psychological History / Comment(s): . Smoking Status: Former smoker Past Alcohol Use History: Occasional Additional Past Alcohol Use History / Comment(s): Pt started smoking in 1965 and quit in 2013. She was a half a ppd smoker. Past Drug Use History: Marijuana Additional Drug Use History / Comment(s): CURRENT MARIJUANA USE - Past Family History Father Family Medical History: Cancer Additional Family Medical History / Comment(s): Father had bladder and bowel cancer. Mother Family Medical History: Rheumatoid Arthritis (RA) Additional Family Medical History / Comment(s): Mother from rheumatoid arthritis at the age of 61 yrs. Brother(s) Family Medical History: Cancer Additional Family Medical History / Comment(s): CANCER OF APPENDIX Medications and Allergies Home Medications Medication Instructions Recorded Confirmed Type Aspirin 325 mg PO BID #60 tab 06/13/18 06/21/18 Rx Atenolol 25 mg PO HS 06/13/18 06/21/18 History Atorvastatin [Lipitor] 20 mg PO HS 06/13/18 06/21/18 History Butalb/APAP/Caff 50-325-40Mg 1 tab PO Q4H PRN 06/13/18 06/21/18 History [Fioricet 50-325-40] Celecoxib [CeleBREX] 200 mg PO BID 06/13/18 06/21/18 History Cyclobenzaprine [Flexeril] 10 mg PO TID PRN 06/13/18 06/21/18 History Dicyclomine [Bentyl] 10 mg PO QID 06/13/18 06/21/18 History Docusate [Colace] 100 mg PO BID #60 capsule 06/13/18 06/21/18 Rx Ferrous Sulfate [Feosol] 325 mg PO Q48H 06/13/18 06/21/18 History Fluticasone Nasal [place] [Flonase 1 spray EA NOSTRIL DAILY 06/13/18 06/21/18 History Nasal [place]] Folic Acid 0.8 mg PO DAILY 06/13/18 06/21/18 History HYDROcodone/APAP 7.5-325MG [[place] 1 - 2 each PO Q6HR PRN #56 tab 06/13/18 Rx 7.5-325] Hydrochlorothiazide 25 mg PO DAILY 06/13/18 06/21/18 History L.acidoph,Paracasei, B.lactis 1 tab PO DAILY 06/13/18 06/21/18 History [Probiotic] LORazepam [Ativan] 1 mg PO TID PRN 06/13/18 06/21/18 History Levothyroxine Sodium [Synthroid] 112 mcg PO SUTUWEFRSA 06/13/18 06/21/18 History Levothyroxine Sodium [Synthroid] 224 mcg PO MOTH 06/13/18 06/21/18 History Lisinopril [Zestril] 10 mg PO DAILY 06/13/18 06/21/18 History Methotrexate Sodium [Methotrexate] 25 mg PO MO 06/13/18 06/21/18 History Multivit-Min/Iron/Folic/Lutein 1 tab PO Q48H 06/13/18 06/21/18 History [Centrum Silver Women Tablet] Pregabalin [Lyrica] 100 mg PO HS 06/13/18 06/21/18 History Sennosides/Docusate Sodium 1 tab PO DAILY PRN 06/13/18 06/21/18 History [Senna-S Laxative Tablet] Sertraline [Zoloft] 100 mg PO DAILY 06/13/18 06/21/18 History buPROPion XL [Wellbutrin Xl] 150 mg PO BID 06/13/18 06/21/18 History metroNIDAZOLE 1% GEL [Metrogel 1%] 1 applic TOPICAL DAILY 06/13/18 06/21/18 History traZODone HCL 150 mg PO HS 06/13/18 06/21/18 History Omeprazole [PriLOSEC] 40 mg PO BID 06/21/18 06/21/18 History Allergies Allergy/AdvReac Type Severity Reaction Status Date / Time No Known Allergies Allergy Verified 06/21/18 09:38 Physical Exam Vitals: Vital Signs Temp Pulse Pulse Resp BP BP BP 06/22/18 21:15 70 12 89/56 06/22/18 21:05 72 16 113/61 06/22/18 20:51 79 16 118/63 06/22/18 20:36 80 16 134/68 06/22/18 20:21 97.4 F L 75 14 144/85 06/22/18 15:59 62 18 108/55 06/22/18 15:20 97.8 F 75 18 172/76 Pulse Ox 06/22/18 21:15 92 L 06/22/18 21:05 96 06/22/18 20:51 96 06/22/18 20:36 93 L 06/22/18 20:21 98 06/22/18 15:59 95 06/22/18 15:20 96 Intake and Output 06/22/18 06/22/18 06/23/18 14:59 22:59 06:59 Intake Total 926 Output Total 10 Balance 916 Intake: IV 926 Output: Estimated Blood Loss 10 Constitutional: No acute distress, conversant, pleasant Eyes: Anicteric sclerae, moist conjunctiva, no lid-lag, PERRLA ENMT: NC/AT,Oropharynx clear, no erythema, exudates Neck:Supple, FROM, no masses, or JVD, No carotid bruits; No thyromegaly Lungs: Clear to auscultation, Clear to percussion, Normal respiratory effort, no accessory muscle use Cardiovascular: Heart regular in rate and rhythm, No murmurs, gallops, or rubs no peripheral edema Abdominal: Soft Nontender, nom distended, no guarding, no rebound or rigidity, Normoactive bowel sounds No hepatomegaly, No splenomegaly, No palpable mass No abdominal wall hernia noted Skin: Normal temperature, tone, texture, turgor, No induration No subcutaneous nodules, No rash, lesions, No ulcers Extremities: Right lower extremity with padded posterior mold splint with side stirrups, abduction feel a sensation of touch on her toes, Psychiatric: Alert and oriented to person, place and time, Appropriate affect Intact judgement Neuro: Muscles Strength 5/5 in all 4 extremities, Sensation to light touch grossly present throughout, Cranial nerves II-XII grossly intact. No focal sensory deficits Assessment and Plan (1) Postoperative hypotension Current Visit: Yes Status: Acute Code(s): I95.89 - OTHER HYPOTENSION SNOMED Code(s): 091038045 (2) Essential hypertension Current Visit: Yes Status: Acute Code(s): I10 - ESSENTIAL (PRIMARY) HYPERTENSION SNOMED Code(s): 23235709 (3) Hyperlipidemia Current Visit: Yes Status: Acute Code(s): E78.5 - HYPERLIPIDEMIA, UNSPECIFIED SNOMED Code(s): 41249790 (4) Rheumatoid arthritis Current Visit: Yes Status: Acute Code(s): M06.9 - RHEUMATOID ARTHRITIS, UNSPECIFIED SNOMED Code(s): 33672330 (5) Hypothyroidism Current Visit: Yes Status: Acute Code(s): E03.9 - HYPOTHYROIDISM, UNSPECIFIED SNOMED Code(s): 83525612 (6) Anxiety and depression Current Visit: Yes Status: Acute Code(s): F41.9 - ANXIETY DISORDER, UNSPECIFIED; F32.9 - MAJOR DEPRESSIVE DISORDER, SINGLE EPISODE, UNSPECIFIED SNOMED Code(s): 48056276 (7) Insomnia Current Visit: Yes Status: Acute Code(s): G47.00 - INSOMNIA, UNSPECIFIED SNOMED Code(s): 646868941 (8) Bimalleolar fracture of right ankle Current Visit: Yes Status: Acute Code(s): S82.841A - DISPLACED BIMALLEOLAR FRACTURE OF RIGHT LOWER LEG, INIT SNOMED Code(s): 074967144 Plan: The patient is admitted to primary orthopedic service under Dr. Gamez will defer to him regarding ongoing pain management postoperatively status post internal fixation of the right closed bimalleolar ankle fracture. Medically speaking the patient is now hemodynamically stable on blood pressure recheck, agree with continuing IV fluids until the morning. We'll plan to hold her antihypertensive medications and will consider restarting them tomorrow. We'll follow-up postop labs in the a.m.. Patient's psychiatric medications have been restarted. The patient is receiving perioperative antibiotics with cefazolin. I would recommend initiation of anticoagulation in the a.m. as the patient is at increased risk for venous thromboembolism given her recent ankle fracture and surgery. We'll continue to follow patient's clinical course Anticipated discharge 1-2 days CODE STATUS full code Discussed plan of care : Patient
[2018-06-23] MEDS: traZODone HCL 50 MG TAB PO SCH ×2 (00:38→20:30)
[2018-06-23] MEDS: PREGABALIN 100 MG CAP PO SCH ×2 (00:38→20:30)
[2018-06-23] MEDS: ceFAZolin IN SWFI 2 GM/20 ML SYRINGE IVP SCH ×2 (00:38→09:06)
[2018-06-23] MEDS: HYDROcodone/APAP 5-325MG 1 EACH TAB PO PRN ×3 (06:00→16:55)
[2018-06-23] MEDS: LEVOTHYROXINE 112 MCG TAB PO SCH (06:01)
[2018-06-23 07:57] LABS: Basophils % (A) 0 %; Eosinophils % (A) 0 %; HCT 39.9 % (34.0-46.0); HGB 12.7 gm/dL (11.4-16.0); Lymphocytes # (A) 1.1 k/uL (1.0-4.8); Lymphocytes % (A) 10 %; MCHC 31.9 g/dL (31.0-37.0); Mean Platelet Volume 7.4; Monocytes # (A) 0.6 k/uL (0-1.0); Monocytes % (A) 6 %; Neutrophils # (A) 8.4 k/uL (1.3-7.7); Neutrophils % (A) 82 %; Platelet Count 339 k/uL (150-450); RBC 4.24 m/uL (3.80-5.40); RDW 13.4 % (11.5-15.5); WBC 10.3 k/uL (3.8-10.6)
[2018-06-23 08:07] LABS: Calcium 9.4 mg/dL (8.4-10.2); Potassium 4.4 mmol/L (3.5-5.1)
--- NOTE | 2018-06-23 08:48 | FL ---
EXAMINATION TYPE: FL guidance operating room DATE OF EXAM: 06/22/2018 HISTORY: Flouroscopy time 40 seconds of fluoroscopy provided. IMPRESSION: 1. Fluoroscopy time.
[2018-06-23] MEDS: PANTOPRAZOLE 40 MG TABLET PO SCH ×2 (09:06→16:56)
[2018-06-23] MEDS: ASPIRIN 325 MG TAB PO SCH ×2 (09:06→20:30)
[2018-06-23] MEDS: SERTRALINE 100 MG TAB PO SCH (09:06)
[2018-06-23] MEDS: DICYCLOMINE 10 MG CAP PO SCH ×4 (09:06→20:30)
[2018-06-23] MEDS: buPROPion XL 150 MG TAB.ER.24H PO SCH (09:06)
[2018-06-23] MEDS: HYDROmorphone 1 MG/ML 1 ML SYRINGE IVP PRN ×3 (09:13→20:29)
[2018-06-23] MEDS: FLUTICASONE 50MCG/SPRAY NASAL 16GM EA NOSTRIL SCH (09:21)
--- NOTE | 2018-06-23 10:58 | XR ---
EXAMINATION TYPE: XR ankle complete RT DATE OF EXAM: 06/22/2018 COMPARISON: NONE HISTORY: Postop TECHNIQUE: 2 images submitted FINDINGS: Postsurgical change appears in near-anatomic alignment. Note is made resolution is reduced due to intraoperative imaging. IMPRESSION: Postsurgical changes
--- NOTE | 2018-06-23 11:07 | P.PN ---
Subjective Progress Note Date: 06/23/18 (delayed charting patient seen at 0815) Principal diagnosis: Right ankle pain Patient here after an ORIF of right ankle secondary to fracture from a recent fall. Patient had some postop hypotension after surgery. Patient seen and examined at bedside. Pain is well controlled currently. She states that her pain increases when she gets up to ambulate since her fracture but she has not been out of bed since surgery. No chest pain, shortness breath , nausea, or vomiting. Feeling slightly confused today after receiving anesthesia yesterday. Objective - Vital Signs Vital signs: Vital Signs Temp 98.2 F 06/23/18 07:00 Pulse 74 06/23/18 07:00 Resp 18 06/23/18 07:00 BP 143/78 06/23/18 07:00 Pulse Ox 93 L 06/22/18 23:27 Intake & Output 06/22/18 06/23/18 06/23/18 18:59 06:59 18:59 Intake Total 800 1026 236 Output Total 10 Balance 800 1016 236 Intake: IV 800 126 Intake, IV Titration 900 Amount Lactated Ringers 1,000 ml 900 @ 100 mls/hr IV .Q10H [facility] Rx#:[id number] Oral 236 Output: Estimated Blood Loss 10 Other: Voiding Method Bedpan # Voids 1 - Exam General: non toxic, no distress, appears at stated age Derm: warm, dry Head: atraumatic, normocephalic, symmetric Eyes: EOMI, no lid lag, anicteric sclera Mouth: no lip lesion, mucus membranes moist Cardiovascular: S1S2 reg, no murmur, positive posterior tibial pulse bilateral, Lungs: CTA bilateral, no rhonchi, no rales , no accessory muscle use Abdominal: soft, nontender to palpation, no guarding, no appreciable organomegaly Ext: no gross muscle atrophy, no edema, no contractures, right calf in splint. Neuro: CN II-XI grossly intact, no focal neuro deficits Psych: Alert, oriented, appropriate affect - Labs CBC & Chem 7: 06/23/18 07:23 06/23/18 07:23 Labs: Abnormal Lab Results - Last 24 Hours (Table) 06/23/18 06/23/18 Range/Units 07:23 07:23 Neutrophils # 8.4 H (1.3-7.7) k/uL BUN 19 H (7-17) mg/dL Creatinine 1.10 H (0.52-1.04) mg/dL Assessment and Plan Assessment: Post op hypotension, improving - resume home lisinopril and betablocker - continue to hold HCTZ, but resume on dishcarge - follow BP HLD - Statin Rheumatoid Arthritis - resume methotrexate when okay with ortho Hypothyroidism - synthroid Right ankle fracture- s/p ORIF - Pain control, PT/OT - Fall precuations. DVT prophylaxis: SCD per ortho Discussed with: Patient, nursing A total of 25 minutes was spent on the care of this complex patient more than 50 % of the time was spent in counseling and care coordination.
--- NOTE | 2018-06-23 12:01 | P.PN ---
Subjective Progress Note Date: 06/23/18 Principal diagnosis: Right ankle fracture Patient is seen at bedside this morning. She is postop day #1 from ORIF of right ankle fracture. She has pain at the surgical site as expected but denies any new complaints. She denies numbness, tingling or calf pain. Review of systems is negative for fever, chills, chest pain, shortness of breath or other Objective - Vital Signs Vital signs: Vital Signs Temp 98.2 F 06/23/18 07:00 Pulse 74 06/23/18 07:00 Resp 18 06/23/18 07:00 BP 143/78 06/23/18 07:00 Pulse Ox 93 L 06/22/18 23:27 Intake & Output 06/22/18 06/23/18 06/23/18 18:59 06:59 18:59 Intake Total 800 1026 236 Output Total 10 Balance 800 1016 236 Intake: IV 800 126 Intake, IV Titration 900 Amount Lactated Ringers 1,000 ml 900 @ 100 mls/hr IV .Q10H [facility] Rx#:[id number] Oral 236 Output: Estimated Blood Loss 10 Other: Voiding Method Bedpan # Voids 1 - Exam Inspection reveals a well padded splint in place. There is no evidence of active bleeding or drainage. Neurovascular status is intact throughout the lower extremity with motor and sensation intact proximal and distal to the splint. less than 2 second cap refill is present. - Constitutional General appearance: Present: no acute distress - Labs CBC & Chem 7: 06/23/18 07:23 06/23/18 07:23 Labs: Abnormal Lab Results - Last 24 Hours (Table) 06/23/18 06/23/18 Range/Units 07:23 07:23 Neutrophils # 8.4 H (1.3-7.7) k/uL BUN 19 H (7-17) mg/dL Creatinine 1.10 H (0.52-1.04) mg/dL Assessment and Plan (1) Bimalleolar fracture of right ankle Narrative/Plan: She will continue with routine postop orthopedic protocol including pain management, PT, wound care, DVT prophylaxis and medical management. Expect that she will transfer to home in the next 1-2 days Current Visit: Yes Status: Acute Priority: Medium Code(s): S82.841A - DISPLACED BIMALLEOLAR FRACTURE OF RIGHT LOWER LEG, INIT SNOMED Code(s): 129545780 Time with Patient: Less than 30
[2018-06-23] MEDS: LISINOPRIL 10 MG TAB PO SCH (12:26)
[2018-06-23] MEDS: hydrOXYzine PAMOATE 25 MG CAP PO PRN (20:31)
[2018-06-23] MEDS ORDERED: ATORVASTATIN 20 MG TAB PO SCH (21:00)
[2018-06-23] MEDS ORDERED: ATENOLOL 25 MG TAB PO SCH (21:00)
[2018-06-24] MEDS: buPROPion XL 150 MG TAB.ER.24H PO SCH ×2 (00:28→08:28)
[2018-06-24] MEDS: HYDROcodone/APAP 5-325MG 1 EACH TAB PO PRN ×2 (00:29→08:29)
[2018-06-24 01:43] VITALS: RESP 16
[2018-06-24] MEDS: LACTATED RINGERS 1,000 ML IV SCH ×3 (03:34→04:02)
[2018-06-24] MEDS: HYDROmorphone 1 MG/ML 1 ML SYRINGE IVP PRN (03:59)
[2018-06-24] MEDS: LEVOTHYROXINE 112 MCG TAB PO SCH (06:15)
[2018-06-24] MEDS: PANTOPRAZOLE 40 MG TABLET PO SCH (08:28)
[2018-06-24] MEDS: hydrOXYzine PAMOATE 25 MG CAP PO PRN (08:28)
[2018-06-24] MEDS: LISINOPRIL 10 MG TAB PO SCH (08:28)
[2018-06-24] MEDS: ASPIRIN 325 MG TAB PO SCH (08:28)
[2018-06-24] MEDS: SERTRALINE 100 MG TAB PO SCH (08:28)
[2018-06-24] MEDS: DICYCLOMINE 10 MG CAP PO SCH ×2 (08:29→13:46)
[2018-06-24] MEDS: FLUTICASONE 50MCG/SPRAY NASAL 16GM EA NOSTRIL SCH (08:31)
[2018-06-24] MEDS ORDERED: HYDROcodone/APAP 7.5-325MG 1 EACH TAB PO PRN ×2 (08:52)
[2018-06-24] MEDS ORDERED: LORazepam 1 MG TAB PO PRN (09:08)
--- NOTE | 2018-06-24 09:41 | P.DS ---
Providers Expected date of discharge: 06/24/18 Attending physician: Shawn Gamez Consults: 06/22/18 16:28 Consult Physician Routine Consulting Provider: Ethan Prince Consult Reason/Comments: post op medical management Do you want consulting provider notified?: Yes 06/22/18 23:02 Consult Physician Routine Consulting Provider: Raji Adkins Consult Reason/Comments: medical management Do you want consulting provider notified?: Already Contacted Primary care physician: Ethan Prince - Discharge Diagnosis(es) (1) Status post ORIF of fracture of ankle Current Visit: Yes Status: Acute (2) Anxiety and depression Current Visit: Yes Status: Acute (3) Bimalleolar fracture of right ankle Current Visit: Yes Status: Acute Priority: Medium (4) Essential hypertension Current Visit: Yes Status: Acute (5) Hyperlipidemia Current Visit: Yes Status: Acute (6) Rheumatoid arthritis Current Visit: Yes Status: Acute (7) Fall Current Visit: No Status: Acute Hospital Course: This is a pleasant 68-year-old female who was found to have a right bimalleolar fracture After discussion and consideration, patient elected to proceed with an ORIF of the right ankle. The patient was seen preoperatively and medically cleared for surgery by primary care physician. The patient was admitted to [facility] and underwent right ankle ORIF by Dr. Gamez on 06/22/2018. The procedure was performed without complications or sequelae. The patient has done well postoperatively. The patient was seen and evaluated at bedside today and denies any new complaints. Pain is reasonably controlled. Dressing and splint are clean dry and intact. The patient is able to wiggle her toes freely without difficulty.. Patient's right lower extremity is neurovascular intact. Patient is orthopedically stable for discharge to home today. Pertinent Studies: Laboratory Tests 06/23/18 06/23/18 07:23 07:23 WBC 10.3 RBC 4.24 Hgb 12.7 Hct 39.9 Neutrophils # 8.4 H BUN 19 H Creatinine 1.10 H Patient Condition at Discharge: Stable Plan - Discharge Summary Discharge Rx Participant: Yes New Discharge Prescriptions: New Aspirin 325 mg PO BID #60 tab Docusate [Colace] 100 mg PO BID #60 capsule HYDROcodone/APAP 7.5-325MG [[place] 7.5-325] 1 - 2 each PO Q6HR PRN #56 tab PRN Reason: Pain No Action Methotrexate Sodium [Methotrexate] 25 mg PO MO Cyclobenzaprine [Flexeril] 10 mg PO TID PRN PRN Reason: Muscle Spasm Atenolol 25 mg PO HS metroNIDAZOLE 1% GEL [Metrogel 1%] 1 applic TOPICAL DAILY Fluticasone Nasal [place] [Flonase Nasal [place]] 1 spray EA NOSTRIL DAILY Sennosides/Docusate Sodium [Senna-S Laxative Tablet] 1 tab PO DAILY PRN PRN Reason: Constipation Multivit-Min/Iron/Folic/Lutein [Centrum Silver Women Tablet] 1 tab PO Q48H Folic Acid 0.8 mg PO DAILY LORazepam [Ativan] 1 mg PO TID PRN PRN Reason: Anxiety Ferrous Sulfate [Feosol] 325 mg PO Q48H L.acidoph,Paracasei, B.lactis [Probiotic] 1 tab PO DAILY Butalb/APAP/Caff 50-325-40Mg [Fioricet 50-325-40] 1 tab PO Q4H PRN PRN Reason: Headache Lisinopril [Zestril] 10 mg PO DAILY Hydrochlorothiazide 25 mg PO DAILY Dicyclomine [Bentyl] 10 mg PO QID Celecoxib [CeleBREX] 200 mg PO BID Levothyroxine Sodium [Synthroid] 224 mcg PO MOTH Levothyroxine Sodium [Synthroid] 112 mcg PO SUTUWEFRSA Sertraline [Zoloft] 100 mg PO DAILY Pregabalin [Lyrica] 100 mg PO HS Atorvastatin [Lipitor] 20 mg PO HS traZODone HCL 150 mg PO HS buPROPion XL [Wellbutrin Xl] 150 mg PO BID Aspirin 325 mg PO BID #60 tab Docusate [Colace] 100 mg PO BID #60 capsule HYDROcodone/APAP 7.5-325MG [[place] 7.5-325] 1 - 2 each PO Q6HR PRN #56 tab PRN Reason: Pain Omeprazole [PriLOSEC] 40 mg PO BID Discharge Medication List Aspirin 325 mg PO BID #60 tab 06/13/18 [Rx] Atenolol 25 mg PO HS 06/13/18 [History] Atorvastatin [Lipitor] 20 mg PO HS 06/13/18 [History] Butalb/APAP/Caff 50-325-40Mg [Fioricet 50-325-40] 1 tab PO Q4H PRN 06/13/18 [ History] Celecoxib [CeleBREX] 200 mg PO BID 06/13/18 [History] Cyclobenzaprine [Flexeril] 10 mg PO TID PRN 06/13/18 [History] Dicyclomine [Bentyl] 10 mg PO QID 06/13/18 [History] Docusate [Colace] 100 mg PO BID #60 capsule 06/13/18 [Rx] Ferrous Sulfate [Feosol] 325 mg PO Q48H 06/13/18 [History] Fluticasone Nasal [place] [Flonase Nasal [place]] 1 spray EA NOSTRIL DAILY 06/13/18 [History] Folic Acid 0.8 mg PO DAILY 06/13/18 [History] HYDROcodone/APAP 7.5-325MG [[place] 7.5-325] 1 - 2 each PO Q6HR PRN #56 tab [Rx] Hydrochlorothiazide 25 mg PO DAILY 06/13/18 [History] L.acidoph,Paracasei, B.lactis [Probiotic] 1 tab PO DAILY 06/13/18 [History] LORazepam [Ativan] 1 mg PO TID PRN 06/13/18 [History] Levothyroxine Sodium [Synthroid] 112 mcg PO SUTUWEFRSA 06/13/18 [History] Levothyroxine Sodium [Synthroid] 224 mcg PO MOTH 06/13/18 [History] Lisinopril [Zestril] 10 mg PO DAILY 06/13/18 [History] Methotrexate Sodium [Methotrexate] 25 mg PO MO 06/13/18 [History] Multivit-Min/Iron/Folic/Lutein [Centrum Silver Women Tablet] 1 tab PO Q48H 06/13 [History] Pregabalin [Lyrica] 100 mg PO HS 06/13/18 [History] Sennosides/Docusate Sodium [Senna-S Laxative Tablet] 1 tab PO DAILY PRN [History] Sertraline [Zoloft] 100 mg PO DAILY 06/13/18 [History] buPROPion XL [Wellbutrin Xl] 150 mg PO BID 06/13/18 [History] metroNIDAZOLE 1% GEL [Metrogel 1%] 1 applic TOPICAL DAILY 06/13/18 [History] traZODone HCL 150 mg PO HS 06/13/18 [History] Omeprazole [PriLOSEC] 40 mg PO BID 06/21/18 [History] Aspirin 325 mg PO BID #60 tab 06/23/18 [Rx] Docusate [Colace] 100 mg PO BID #60 capsule 06/23/18 [Rx] HYDROcodone/APAP 7.5-325MG [[place] 7.5-325] 1 - 2 each PO Q6HR PRN #56 tab [Rx] Follow up Appointment(s)/Referral(s): Shawn Gamez MD [STAFF PHYSICIAN] - 2 Weeks Activity/Diet/Wound Care/Special Instructions: Keep splint clean and dry Take meds as directed Follow-up with Dr. Gamez in office Non weightbearing Discharge Disposition: HOME SELF-CARE
--- NOTE | 2018-06-24 14:30 | P.PN ---
Subjective Progress Note Date: 06/24/18 Objective - Vital Signs Vital signs: Vital Signs Temp 99 F 06/24/18 08:23 Pulse 64 06/24/18 08:23 Resp 16 06/24/18 08:23 BP 168/63 06/24/18 08:23 Pulse Ox 99 06/24/18 08:23 Intake & Output 06/23/18 06/24/18 06/24/18 18:59 06:59 18:59 Intake Total 1616 222 Balance 1616 222 Intake: Intake, IV Titration 800 Amount Lactated Ringers 1,000 ml 800 @ 100 mls/hr IV .Q10H [facility] Rx#:[id number] Oral 816 222 Other: # Voids 3 2 2 - Exam Constitutional: No acute distress, conversant, pleasant Eyes: Anicteric sclerae, moist conjunctiva, no lid-lag, PERRLA ENMT: NC/AT,Oropharynx clear, no erythema, exudates Neck:Supple, FROM, no masses, or JVD, No carotid bruits; No thyromegaly Lungs: Clear to auscultation, Clear to percussion, Normal respiratory effort, no accessory muscle use Cardiovascular: Heart regular in rate and rhythm, No murmurs, gallops, or rubs no peripheral edema Abdominal: Soft Nontender, nom distended, no guarding, no rebound or rigidity, Normoactive bowel sounds No hepatomegaly, No splenomegaly, No palpable mass No abdominal wall hernia noted Skin: Normal temperature, tone, texture, turgor, No induration No subcutaneous nodules, No rash, lesions, No ulcers Extremities: Right lower extremity with padded posterior mold splint with side stirrups, abduction feel a sensation of touch on her toes, Psychiatric: Alert and oriented to person, place and time, Appropriate affect Intact judgement Neuro: Muscles Strength 5/5 in all 4 extremities, Sensation to light touch grossly present throughout, Cranial nerves II-XII grossly intact. No focal sensory deficits - Labs CBC & Chem 7: 06/23/18 07:23 06/23/18 07:23 Assessment and Plan Assessment: Post op hypotension, improving - resume home lisinopril and betablocker - continue to hold HCTZ, but resume on dishcarge - follow BP HLD - Statin Rheumatoid Arthritis - resume methotrexate when okay with ortho Hypothyroidism - synthroid Right ankle fracture- s/p ORIF - Pain control, PT/OT - Fall precuations. DVT prophylaxis: SCD per ortho Discussed with: Patient, nursing Patient stable for discharge today A total of 25 minutes was spent on the care of this complex patient more than 50 % of the time was spent in counseling and care coordination. (1) Essential hypertension Current Visit: Yes Status: Chronic Code(s): I10 - ESSENTIAL (PRIMARY) HYPERTENSION SNOMED Code(s): 77177129 (2) Postoperative hypotension Current Visit: Yes Status: Resolved Code(s): I95.89 - OTHER HYPOTENSION SNOMED Code(s): 737009358 (3) Hyperlipidemia Current Visit: Yes Status: Acute Code(s): E78.5 - HYPERLIPIDEMIA, UNSPECIFIED SNOMED Code(s): 87337504 (4) Rheumatoid arthritis Current Visit: Yes Status: Acute Code(s): M06.9 - RHEUMATOID ARTHRITIS, UNSPECIFIED SNOMED Code(s): 64427145 (5) Hypothyroidism Current Visit: Yes Status: Acute Code(s): E03.9 - HYPOTHYROIDISM, UNSPECIFIED SNOMED Code(s): 54071739 (6) Anxiety and depression Current Visit: Yes Status: Acute Code(s): F41.9 - ANXIETY DISORDER, UNSPECIFIED; F32.9 - MAJOR DEPRESSIVE DISORDER, SINGLE EPISODE, UNSPECIFIED SNOMED Code(s): 86336766 (7) Insomnia Current Visit: Yes Status: Acute Code(s): G47.00 - INSOMNIA, UNSPECIFIED SNOMED Code(s): 265734635 (8) Bimalleolar fracture of right ankle Current Visit: Yes Status: Acute Priority: Medium Code(s): S82.841A - DISPLACED BIMALLEOLAR FRACTURE OF RIGHT LOWER LEG, INIT SNOMED Code(s): 774704708
[2018-06-24 14:49] VITALS: BP 155/84; PULSE 74; TEMP 98.3
[2018-06-26] MEDS ORDERED: LEVOTHYROXINE 112 MCG TAB PO SCH (06:30)
== END 2018-06-24 15:16 | disposition home or self-care (01) ==
LOC: OR 14:52 → 4SSUR 20:24 → OR 06-24 15:16
PROVIDERS: ATTEND Orthopaedic Surgery Sports Medicine
DX: S82.841A Displaced bimalleolar fracture of right lower leg, initial encounter for closed fracture (principal); W01.0XXA Fall on same level from slipping, tripping and stumbling without subsequent striking against object, initial encounter; Y92.002 Bathroom of unspecified non-institutional (private) residence as the place of occurrence of the external cause; I95.81 Postprocedural hypotension; I10 Essential (primary) hypertension; E78.2 Mixed hyperlipidemia; E03.9 Hypothyroidism, unspecified; F32.9 Major depressive disorder, single episode, unspecified; F41.9 Anxiety disorder, unspecified; K21.9 Gastro-esophageal reflux disease without esophagitis; L71.9 Rosacea, unspecified; K58.0 Irritable bowel syndrome with diarrhea; M05.89 Other rheumatoid arthritis with rheumatoid factor of multiple sites; G47.00 Insomnia, unspecified; M79.7 Fibromyalgia; E55.9 Vitamin D deficiency, unspecified; M54.5 Low back pain; Z79.82 Long term (current) use of aspirin; Z79.890 Hormone replacement therapy; Z79.891 Long term (current) use of opiate analgesic; Z79.899 Other long term (current) drug therapy; Z88.5 Allergy status to narcotic agent; Z87.891 Personal history of nicotine dependence
CPT/HCPCS: 27814; 64450; 97161; 80048; 85025; 73610; C1713; J2250; J1100; J2405; J0690 ×3; J2001; J3010; J1170 ×4; J2795; J2370; J0330; J2704; 64493